=== PATIENT | female | born 1980 | race African-American/Black ===

== ENCOUNTER 2016-12-08 20:58 | Emergency (ER) | payer OTHER ==
[~2016-12-08 20:58] MED LIST: AMOXICILLIN500 M1 PO; ASPIR-TRIN325 MG PO; BACTRIM DS TABL1 TA1 PO; KEFLEX500 M1 PO; KEFLEX500 MG PO; LABETALOL HCL100 MG PO; LISINOPRIL10 MG PO; LORTAB 5/500 TA1 TA1 PO; METOPROLOL PO; PERCOCET 5-3251 TAB PO; PRENATAL VITAMI1 TA7 PO
== END 2016-12-08 22:37 | disposition home or self-care (01) ==
LOC: CFTX 20:58
DX: K08.89 Other specified disorders of teeth and supporting structures (principal); R03.0 Elevated blood-pressure reading, without diagnosis of hypertension; F17.210 Nicotine dependence, cigarettes, uncomplicated; Z88.5 Allergy status to narcotic agent
CPT/HCPCS: 99282

== ENCOUNTER 2016-12-13 20:20 | Emergency (ER) | payer OTHER | END 2016-12-13 20:42 | disposition home or self-care (01) | LOC: CFTX 20:20 | DX: K08.89 Other specified disorders of teeth and supporting structures (principal); I10 Essential (primary) hypertension; F17.210 Nicotine dependence, cigarettes, uncomplicated | CPT/HCPCS: 96372; 99283; J1885 ==